=== PATIENT | female | born 1980 | race Caucasian/White ===

== ENCOUNTER → 2017-05-11 | Outpatient (CLI) | payer OTHER ==
[~2017-05-11] VITALS: Ht 162.6 cm; Wt 75.9 kg
[~2017-05-11] MED LIST: Motrin PO; PRENATAL TABLE1 EAC3 PO
[2017-05-11 15:18] VITALS: BP 115/57
== END | disposition home or self-care (01) ==
LOC: IVINF 15:00
DX: Z34.82 Encounter for supervision of other normal pregnancy, second trimester (principal); Z3A.28 28 weeks gestation of pregnancy; Z67.21 Type B blood, Rh negative
CPT/HCPCS: 96372; J2790

== ENCOUNTER 2017-08-01 06:55 | Inpatient (IN) | payer OTHER ==
[2017-08-01] VITALS (8 sets, daily range): BP systolic 101–123; BP diastolic 57–75
[~2017-08-01] VITALS: Ht 162.6 cm; Wt 80.5 kg
[2017-08-01 08:56] LABS: BASOPHIL (%) 0.5 % (0-1); EOSINOPHIL (%) 0.6 % (0-5); HEMATOCRIT 35.8 % (36.0-46.0); HEMOGLOBIN 11.9 G/DL (11.9-15.5); LYMPHOCYTE (%) 18.4 % (15-42); LYMPHOCYTE COUNT 1.2 K/uL (1.0-2.8); MCH 29.7 PG (29.0-34.0); MCHC 33.2 G/DL (30.0-36.0); MCV 89.3 FL (83-99); MONOCYTE (%) 10.1 % (3-12); MONOCYTE COUNT 0.6 K/uL (0-0.8); NEUTROPHIL (%) 69.4 % (45-76); NEUTROPHIL COUNT 4.3 K/uL (1.8-6.4); PLATELET COUNT 149 K/uL (156-360); RBC DIS.WIDTH-CV 13.5 % (11.8-14.6); RBC DIS.WIDTH-SD 43.7 % (39-53); RED BLOOD COUNT 4.01 M/uL (3.80-5.20); WHITE BLOOD COUNT 6.3 K/uL (4.1-10.2)
[2017-08-01 09:43] LABS: AMPHETAMINE NEGATIVE (500 ng/mL); BARBITURATES NEGATIVE (200 ng/mL); BENZODIAZEPINES NEGATIVE (150 ng/mL); BUPRENORPHINE NEGATIVE (10 ng/mL); COCAINE NEGATIVE (150 ng/mL); METHADONE NEGATIVE (200 ng/mL); METHAMPHETAMINE NEGATIVE (500 ng/mL); OPIATES (MORPHINE) NEGATIVE (100 ng/mL); OXYCODONE NEGATIVE (100 ng/mL); PHENCYCLIDINE NEGATIVE (25 ng/mL); PROPOXYPHENE NEGATIVE (300 ng/mL); THC CANNABINOIDS NEGATIVE (50 ng/mL); TRICYCLIC ANTIDEPRESSANTS NEGATIVE (300 ng/mL)
[2017-08-01] MEDS ORDERED: ENDOCET 5-3251 EACH PO (15:16)
[2017-08-01] MEDS ORDERED: IBUPROFEN800 MG PO (15:16)
[2017-08-02 00:25] VITALS: BP 100/55
[2017-08-02 02:45] VITALS: BP 91/54
[2017-08-02 06:16] LABS: BASOPHIL (%) 0.2 % (0-1); EOSINOPHIL (%) 0 % (0-5); HEMATOCRIT 24.8 % (36.0-46.0); IMMATURE GRANULOCYTE (%) 0.4 % (0.0-0.7); LYMPHOCYTE COUNT 1.1 K/uL (1.0-2.8); MCH 29.3 PG (29.0-34.0); MCHC 32.3 G/DL (30.0-36.0); MCV 90.8 FL (83-99); MONOCYTE (%) 7.6 % (3-12); MONOCYTE COUNT 0.8 K/uL (0-0.8); NEUTROPHIL (%) 80.8 % (45-76); PLATELET COUNT 130 K/uL (156-360); RBC DIS.WIDTH-CV 13.7 % (11.8-14.6); RBC DIS.WIDTH-SD 44.1 % (39-53); WHITE BLOOD COUNT 9.9 K/uL (4.1-10.2)
[2017-08-02 06:22] LABS: RED BLOOD COUNT 2.73 M/uL (3.80-5.20)
[2017-08-02 07:00] VITALS: BP 85/44
[2017-08-02] MEDS ORDERED: FEOSOL325 MG PO (09:55)
[2017-08-02 11:45] VITALS: BP 101/53
[2017-08-02 14:30] VITALS: BP 83/42
[2017-08-02 19:05] VITALS: BP 110/57
[2017-08-03 02:55] VITALS: BP 105/59
[2017-08-03 07:35] VITALS: BP 101/53
[2017-08-03 11:02] VITALS: BP 117/60
[2017-08-03 15:34] VITALS: BP 119/68
== END 2017-08-03 18:40 | disposition home or self-care (01) | DRG 765 ==
LOC: LDRP-OP 06:55 → 2WEST 06:56 → LDRP-OP 06:59 → 2WEST 14:37 → LDRP-OP 09-02 09:18
PROVIDERS: Midwife; Obstetrics & Gynecology Obstetrics
DX: O32.0XX0 Maternal care for unstable lie, not applicable or unspecified (principal); O32.8XX0 Maternal care for other malpresentation of fetus, not applicable or unspecified; Z37.0 Single live birth; Z3A.39 39 weeks gestation of pregnancy; D62 Acute posthemorrhagic anemia; O99.02 Anemia complicating childbirth
CPT/HCPCS: 85025; J0131; J0690; J1100; J1885; J2274; J2405; J2765; J3010; J7120

== ENCOUNTER → 2017-08-20 | Outpatient (CLI) | payer OTHER ==
[~2017-08-20] MED LIST changes: +ENDOCET 5-3251 EACH PO; +FEOSOL325 MG PO; +IBUPROFEN800 MG PO
== END | disposition home or self-care (01) ==
LOC: LAC 12:19
DX: Z39.1 Encounter for care and examination of lactating mother (principal); O92.03 Retracted nipple associated with lactation; O92.4 Hypogalactia
CPT/HCPCS: G0463